=== PATIENT | female | born 1995 | race Caucasian/White ===

== ENCOUNTER 2022-09-07 10:21 | Emergency (ER) | payer SELFPAY, BC ==
[2022-09-07] MEDS ORDERED: methylPREDNISolone Acetate 40 mg/ml Vial ONE (11:28)
== END 2022-09-07 11:46 | disposition home or self-care (01) ==
LOC: NAV ERS 10:21
DX: J06.9 Acute upper respiratory infection, unspecified (principal); J20.8 Acute bronchitis due to other specified organisms; I10 Essential (primary) hypertension; J45.909 Unspecified asthma, uncomplicated; F17.290 Nicotine dependence, other tobacco product, uncomplicated; Z20.822 Contact with and (suspected) exposure to COVID-19
CPT/HCPCS: 99283; J1030